=== PATIENT | male | born 1975 | race Caucasian/White ===

== ENCOUNTER 2022-09-19 08:25 | Outpatient (CLI) | payer OTHER, SELFPAY ==
[2022-09-19 09:57] LABS: Cholesterol* 178 mg/dL (90-199)
[2022-09-19 09:58] LABS: Glucose* 90 mg/dL (60-115); HDL Cholesterol* 80 mg/dL (>=40); LDL Cholesterol Calculated 76 mg/dL (<100); Triglycerides* 109 mg/dL (40-149)
== END 2022-09-19 08:26 | disposition home or self-care (01) ==
PROVIDERS: PCP Family Medicine; Visit Provider Family Medicine
DX: Z00.00 Encounter for general adult medical examination without abnormal findings (principal); Z13.6 Encounter for screening for cardiovascular disorders; Z13.1 Encounter for screening for diabetes mellitus
CPT/HCPCS: 80061; 82947

== ENCOUNTER 2022-10-30 06:07 | Outpatient (CLI) | payer OTHER, SELFPAY | END 2022-10-30 06:08 | disposition home or self-care (01) | PROVIDERS: PCP Family Medicine; Visit Provider Internal Medicine | DX: Z12.11 Encounter for screening for malignant neoplasm of colon (principal); K63.5 Polyp of colon; K57.30 Diverticulosis of large intestine without perforation or abscess without bleeding | CPT/HCPCS: 45380; 88305; J2250; J3010 ==